=== PATIENT | male | born 1955 | race Caucasian/White ===

== ENCOUNTER 2025-04-24 12:09 | Emergency (ER) | payer MEDICARE, OTHER, SELFPAY ==
[2025-04-24 12:10] VITALS: BP 139/102; PULSE 96; RESP 16; TEMP 36.6; O2SAT 98; BMI 27.2
[2025-04-24 12:19] VITALS: BP 134/87; PULSE 68; RESP 12; O2SAT 98
--- NOTE | 2025-04-24 12:21 | EKG12_ITS ---
Test Reason : CP Blood Pressure : */* mmHG Vent. Rate : 60 BPM Atrial Rate : 60 BPM P-R Int : 192 ms QRS Dur : 84 ms QT Int : 360 ms P-R-T Axes : 26 2 31 degrees QTcB Int : 360 ms Normal sinus rhythm Normal ECG Confirmed by BARRON MARROQUIN, ZAMZAM ([id number]), managing editor POONAM LEE ([id number]) on 04/25/2025 1:36:26 PM Referred By: LISY/JAZ Confirmed By: ZAMZAM MART MD
--- NOTE | 2025-04-24 12:35 | ED.VIS.CHEST ---
HPI History of Present Illness Chief Complaint: Chest Pain Narrative Narrative: Chief complaint and HPI: Shoulder pain. 69-year-old male with past medical history of chronic back pain presents for evaluation of shoulder pain. Patient states that he was working at a computer when he developed pain in his left shoulder. States that it slightly radiated into his left chest and the right shoulder. Described it as cramping. States he went to an urgent care and was sent to the emergency department. Did not take anything for the pain and states that it has since resolved. He denies any numbness/tingling, weakness. Denies any fever, chills, URI symptoms, shortness of breath, cough abdominal pain, nausea, vomiting. Denies any recent surgery or travel. Denies any bilateral lower extremity pain or swelling. Denies any recent trauma or injury. Previous tobacco abuse over 30 years ago. Review of systems: See HPI Medications: As listed on the chart Allergies: As listed on the chart PFSH: Per chart Vital signs: As listed on the chart. Reviewed. Physical exam: Gen: A&O x3, NAD Head: Normocephalic, atraumatic Eyes: No sclera icterus, conjunctiva clear ENT: Moist mucous membranes Neck: Trachea midline, No JVD full range of motion, nontender CV: RRR, no murmurs, no peripheral edema, chest wall nontender to palpation Resp: Lungs CTA BL, no w/r/c GI: Abd soft, non-distended, non-tender, no r/r/g Musc: Full ROM, no deformity, mild tenderness to palpation of the superior portion of the trapezius muscle on the left-states it slightly recreates his pain, no midline spinal tenderness, no bony step-off Skin: Warm, dry Neuro: Alert, oriented, grossly intact, sensation intact Psych: Cooperative, appropriate mood and affect [facility] Medical History (Updated 04/24/25 @ 15:[address] Jhonny Todd DO) Back pain Home Medications ?Medication ?Instructions ?Recorded ?Last Taken ?Type NK 04/24/25 Unknown History Allergy/AdvReac Type Severity Reaction Status Date / Time bee venom protein (honey bee) Allergy Anaphylaxis Verified 04/24/25 12:10 Social History Smoking Status: Former smoker EXAM Physical Exam Const Vital Signs: 04/24/25 12:10 04/24/25 12:17 04/24/25 12:19 Temperature 97.9 F Temperature Source Temporal Pulse Rate 96 68 Respiratory Rate 16 12 Respiratory Effort Normal Non-Labored Blood Pressure 139/102 H 134/87 H Blood Pressure Mean 114 102 Pulse Ox 98 98 Oxygen Delivery Method Room Air Room Air 04/24/25 13:04 Temperature Temperature Source Pulse Rate 57 L Respiratory Rate 11 L Respiratory Effort Blood Pressure 109/67 Blood Pressure Mean 81 Pulse Ox 96 Oxygen Delivery Method MDM MDM MDM Narrative Medical decision making narrative: 69-year-old male with past medical history of chronic back pain presents for evaluation of shoulder pain. Onset was while sitting at a computer. Radiated into the the left chest as well as right shoulder. Described as crampy. Currently resolved without medication. Differential diagnosis includes but is not limited to myofascial spasm, ACS, electrolyte abnormality, suspect less likely pneumonia or pneumothorax. On presentation, patient in no acute distress. Mildly hypertensive. Aspirin ordered despite patient's pain resolved. Cardiac workup ordered. CBC without leukocytosis or anemia. Platelet count unremarkable. BMP unremarkable. BNP unremarkable. Troponin x 2 negative. On reevaluation, patient has remained asymptomatic. His heart score is a 3, which places him at a low score. He was updated on the results. Patient is stable to discharge home. Follow-up with PCP. Return precautions explained. He confirmed understanding of the plan. EKG: Interpreted by me/EM physician: EKG shows normal sinus rhythm without any acute ischemic changes. Heart rate 60. Diagnostic: Interpreted by me/EM physician: Chest x-ray without pneumonia, effusion, cardiomegaly, pneumothorax. Radiology in agreement. Impression: 1. Chest pain Lab Data Labs: Laboratory Results - last 24 hr 04/24/25 04/24/25 12:15 14:10 WBC 7.9 RBC 4.54 L Hgb 14.6 Hct 44.1 MCV 97.1 H MCH 32.2 H MCHC 33.1 RDW Std Deviation 44.7 H RDW Coeff of Tatiana 12.5 Plt Count 231 MPV 10.5 Immature Gran % (Auto) 0.300 Neut % (Auto) 44.1 L Lymph % (Auto) 39.6 Island % (Auto) 10.3 H Eos % (Auto) 4.2 Baso % (Auto) 1.5 H Absolute Neuts (auto) 3.5 Absolute Lymphs (auto) 3.12 Nucleated RBC % 0 Sodium 140 Potassium 4.6 Chloride 105 Carbon Dioxide 24.8 Anion Gap 10 BUN 17 Creatinine 1.01 Estim Creat Clear Calc 68.06 Est GFR (MDRD) Non-Af 80 BUN/Creatinine Ratio 16.9 Glucose 94 Calcium 9.3 Troponin T High Sens 13 Troponin T Hi Sens 2 Hr 14 NT pro BNP II 114 Radiography Diagnostic Testing: Clinical Impression(s) from Imaging Studies Chest X-Ray 04/24/25 12:40 IMPRESSION: Lungs are moderately hyperinflated, with increased interstitial markings, consistent with chronic lung disease. No acute pneumonic process is identified. No pleural effusion or pneumothorax is seen. The cardiomediastinal silhouette is remarkable for a somewhat tortuous aorta. No evidence of cardiomegaly. Mild degenerative changes of the thoracic spine are seen. No evidence of acute cardiopulmonary disease. Reading Location: [place] [id number] Discharge Plan Triage Chief Complaint: Chest Pain ED Provider: Jhonny Todd Dx/Rx/DC Orders Clinical Impression: Chest pain Instructions: Chest Pain [facility] Ch Prescriptions: No Action NK Primary Care Provider: John Jason Referrals: John Jason MD [Primary Care Provider] - 3-5 Days Activity Restrictions/Additional Instructions: At this point in time, no clear reason for your chest pain. Follow-up with your primary care physician. Return back to the ED if symptoms change or worsen. Print Language: Turkish Disposition Disposition: Home, Self Care
[2025-04-24] MEDS: Aspirin 81 MG TAB.CHEW 324 MG PO (12:36)
[2025-04-24 12:37] LABS: Absolute Lymphocyte Count 3.12 X10^3/uL (0.83-4.51); Absolute Neutrophil Count 3.5 X10^3/uL (2.0-7.7); Basophil# 0.12 X10^3/uL; Basophil% 1.5 % (0-1); Eosinophil# 0.33 X10^3/uL; Eosinophils% 4.2 % (0-5); Hematocrit 44.1 % (40-54); Hemoglobin 14.6 g/dL (13.0-16.5); Lymphocyte # 3.12 X10^3/ul (0.83-4.51); Lymphocyte % 39.6 % (19-41); Mean Corp Hgb Conc 33.1 g/dL (32-36); Mean Corpuscular Hgb 32.2 pg (27.0-32.0); Mean Corpuscular Volume 97.1 fL (80-94); Mean Platelet Vol. 10.5 fl (6.2-12.0); Monocyte# 0.81 X10^3/uL; Monocyte% 10.3 % (0-10); NRBC Flagged by Analyzer 0 % (0-5); Neutrophil # 3.48 X10^3/uL (2.7-7.7); Neutrophil % 44.1 % (47-70); Platelet Count 231 K/mm3 (150-450); RBC Distribution Width CV 12.5 % (11.6-14.6); RBC Distribution Width SD 44.7 fl (35.1-43.9); Red Blood Count 4.54 M/mm3 (4.6-6.2); White Blood Count 7.9 K/mm3 (4.4-11.0)
--- NOTE | 2025-04-24 12:40 | RAD_ITS ---
PROCEDURE: CHEST PA AND LATERAL 04/24/2025 REASON FOR EXAM: CHEST PAIN TECHNIQUE: CHEST PA AND LATERAL COMPARISON: None provided RAD/Chest PA and Lateral IMPRESSION: Lungs are moderately hyperinflated, with increased interstitial markings, consi stent with chronic lung disease. No acute pneumonic process is identified. No pleural effusion or pneumothorax is seen. The cardiomediastinal silhouette is remarkable for a somewhat tortuous aorta. No evidence of cardiomegaly. Mild degenerative changes of the thoracic spine are seen. No evidence of acute cardiopulmonary disease. Reading Location: [place] [id number]
[2025-04-24 13:04] VITALS: BP 109/67; PULSE 57; RESP 11; O2SAT 96
[2025-04-24 13:27] LABS: Anion Gap 10 (5-15); BUN 17 mg/dL (4-19); BUN/Creat Ratio 16.9 RATIO (10-20); Calcium,Total 9.3 mg/dL (7.6-11.0); Carbon Dioxide 24.8 mmol/L (21.0-32.0); Chloride 105 mmol/L (98-108); Creatinine, Serum 1.01 mg/dL (0.70-1.20); EST Glomerular Filtration Rate 80 (>60); Estimated Creatinine Clearance 68.06 ml/min (50-250); Glucose 94 mg/dL (70-99); Potassium 4.6 mmol/L (3.3-5.1); Sodium Level 140 mmol/L (133-145)
[2025-04-24 13:29] LABS: Pro- Brain NATRIURETIC PEPTIDE 114 pg/mL (<=900); Troponin T High Sensitivity 13 ng/L (<=22)
[2025-04-24 14:50] LABS: Troponin T High Sens 2 HR 14 ng/L (<=22)
[2025-04-24 15:00] VITALS: BP 107/78; PULSE 62; RESP 14; TEMP 36.6; O2SAT 99
== END 2025-04-24 15:09 | disposition home or self-care (01) ==
PROVIDERS: Emergency Provider Surgery; PCP Internal Medicine; Visit Provider Surgery
DX: R07.9 Chest pain, unspecified (principal); Z87.891 Personal history of nicotine dependence
CPT/HCPCS: 71046; 80048; 83880; 84484; 85025; 93005; 99284; A4216